=== PATIENT | female | born 1990 | race Caucasian/White ===

== ENCOUNTER 2019-11-28 01:39 | Emergency (ER) | payer SELFPAY ==
[2019-11-28 01:42] VITALS: BP 136/77
--- NOTE | 2019-11-28 01:50 | NUR ---
PT NANDO RUBI CALLED BY FRIEND PT"FLIPPED OUT ON HER" PT ADMITS TO USING HEROINE AND METH EVERY DAY, PT DENIES MEDICAL COMPLAINT
== END 2019-11-28 02:05 | disposition home or self-care (01) ==
LOC: ED 01:45
DX: F15.10 Other stimulant abuse, uncomplicated (principal); Z00.00 Encounter for general adult medical examination without abnormal findings; Z72.9 Problem related to lifestyle, unspecified
CPT/HCPCS: 99283